=== PATIENT | female | born 1980 | race Caucasian/White ===

== ENCOUNTER 2016-11-13 21:09 | Inpatient (IN) | payer OTHER ==
--- NOTE | ~2016-11-13 | DS ---
Unit #: [id number] #: [id number] Patient: DUKE REDDY [id number] [place] [address] [id number] I MR#: [id number] NAME: DUKE REDDY ROOM: [facility] Age: 36 Sex: F Admission Date: 11/14/2016 : 1980 Discharge Date: 11/21/2016 Attending Physician: Christopher Ortiz M.D. Primary Care Physician: Primary Care Physician No DISCHARGE SUMMARY REASON FOR ADMISSION Detox. DIAGNOSTIC STUDIES Laboratory data is remarkable for creatinine 0.5. HOSPITAL COURSE The patient was admitted to inpatient unit on November 14 and discharged on November 21, 2016. The patient was treated on the inpatient unit with group therapy, individual therapy, detox protocol, and detox monitoring, chemical dependency group, and the patient was responsive to treatment. The patient's brother has currently petitioned court for further treatment in rehab facility. The patient showed improvement, denied any thoughts of harming self or others. The patient was subsequently discharged with her brother. The patient will go to court and after that to a rehab program. DISCHARGE DIAGNOSES [place] I Opiate use disorder, severe, F11.20. Major depressive disorder, recurrent, severe, F33.2. [place] II Deferred. [place] III None. [place] IV Psychosocial stressor. [place] V INSTRUCTIONS TO PATIENT The patient is to follow up in outpatient clinic as well as director social service. DISCHARGE MEDICATIONS 1. Desyrel 50 mg at bedtime 2. Vistaril 25 mg three times a day for anxiety 3. Neurontin 300 mg three times a day for anxiety 4. Celexa 40 mg daily for mood symptoms CONDITION AT DISCHARGE The patient is pleasant and cooperative, and without any psychotic symptoms or any suicidal ideation. PROGNOSIS Guarded. DIET AND ACTIVITY As tolerated. Unit #: [id number] #: [id number] Patient: DUKE REDDY Dictated by... Montserrat Gruber/juan carlos TD: 11/22/2016 10:00 JOB #: [id number] DISCHARGE SUMMARY Page 1 of 1 X Christopher Ortiz MD X DISCHARGE SUMMARY
--- NOTE | ~2016-11-13 | PN ---
Unit #: [id number] #: [id number] Patient: DUKE REDDY [id number] [facility] [address] [place] [address] [id number] I MR#: [id number] NAME: DUKE REDDY ROOM: [facility] Age: 36 Sex: F Admission Date: 11/14/2016 : 1980 Attending Physician: Christopher Ortiz M.D. Admitting Physician: Christopher Ortiz M.D. Primary Care Physician: Primary Care Physician Princess LANDRY NOTES DATE OF SERVICE 11/17/2016 DISCUSSION Ms. Duke Reddy is a 36-year-old female. The patient interviewed, chart reviewed. Obtained information from nursing staff. The patient compliant, cooperative. Mood sad, dysphoric, flat affect, guarded. The patient denied any thoughts of harming self or others, but still having withdrawal symptom. Anxious, nervous. Sad, depressed mood. Complete Review of Systems: Unremarkable. MENTAL STATUS EXAMINATION General Appearance: The patient dressed casually. Attention span, concentration: Fair. Oriented in place and person. Mood and affect labile. Speech: Monotone. Thought process: [place]. The patient reported having passive SI. Denied any homicidal ideation. Guarded, paranoid, isolative. Recent and remote memory: Poor. Insight and judgment: Poor. DIAGNOSES 1. Opiate use disorder, severe. 2. Mood disorder, not otherwise specified. ASSESSMENT/PLAN Advised to continue with current medication and therapeutic protocol. If needed, consider further adjustment of medication. Dictated by... Montserrat Gruber/nehemias TD: 11/18/2016 08:52 JOB #: [id number] Unit #: [id number] #: [id number] Patient: DUKE REDDY CHRISTOPHER PROGRESS NOTES Page 1 of 1 X Christopher Ortiz MD PROGRESS NOTE
--- NOTE | ~2016-11-13 | PN ---
Unit #: [id number] #: [id number] Patient: DUKE REDDY [id number] [facility] [address] [place] [address] [id number] I MR#: [id number] NAME: DUKE REDDY ROOM: [facility] Age: 36 Sex: F Admission Date: 11/14/2016 : 1980 Attending Physician: Christopher Ortiz M.D. Admitting Physician: Christopher Ortiz M.D. Primary Care Physician: Primary Care Physician Princess WHITE PROGRESS NOTES DATE OF SERVICE 11/20/2016 DISCUSSION Ms. Cabrera is a 36-year-old female seen on 11/20/2016. The patient interviewed, chart reviewed. Obtained information from nursing staff. The patient was compliant, cooperative. Able to maintain safe behavior. Reporting mood is better, making progress. Complete Review of Systems: Unremarkable. MENTAL STATUS EXAMINATION General Appearance: The patient dressed casually. Attention span, concentration: Fair. Oriented in place and person. Mood and affect labile. Speech: Monotone. Thought process: [place]. The patient denied any thoughts of harming self or others. Recent and remote memory: Poor. Insight and judgment: Poor. DIAGNOSES 1. Opiate use disorder, severe. 2. Mood disorder not otherwise specified. ASSESSMENT/PLAN Advised to continue with current medication and therapeutic protocol. If needed, consider further adjustment of medication. Dictated by... Montserrat Gruber/nehemias TD: 11/21/2016 09:41 JOB #: [id number] Unit #: [id number] #: [id number] Patient: DUKE REDDY PROGRESS NOTES Page 1 of 1 X Christopher Ortiz MD PROGRESS NOTE
--- NOTE | ~2016-11-13 | PN ---
Unit #: [id number] #: [id number] Patient: DUKE REDDY [id number] [facility] [address] [place] [address] [id number] I MR#: [id number] NAME: DUKE REDDY ROOM: [facility] Age: 36 Sex: F Admission Date: 11/14/2016 : 1980 Attending Physician: Christopher Ortiz M.D. Admitting Physician: Christopher Ortiz M.D. Primary Care Physician: Primary Care Physician Princess WHITE PROGRESS NOTES DATE OF SERVICE 11/19/16 DISCUSSION Ms. Cabrera is a 36-year-old female seen on 11/19/16. Patient interviewed, chart reviewed, I obtained information from nursing staff. Patient on interview reports sad, depressed, withdrawn, isolative, guarded but reports her anxiety is better. Patient tolerating medication fairly well, attending some group but still is sad, depressed, withdrawn, isolative. Patient is currently on Celexa 40 mg daily, which was increased yesterday due to further depressive symptoms; Neurontin 300 mg three times a day; Desyrel 50 mg at bedtime; Vistaril 25 mg three times a day. COMPLETE REVIEW OF SYSTEMS Unremarkable. MENTAL STATUS EXAMINATION GENERAL APPEARANCE: Patient dressed casually. ATTENTION SPAN AND CONCENTRATION: Fair. Oriented in time, place and person. MOOD AND AFFECT: Sad, dysphoric, flat affect, anxious, nervous. SPEECH: Low in volume. THOUGHT PROCESS: Goal directed. Patient denied any thoughts of harming self or others, but sad, depressed, withdrawn, isolative, guarded. RECENT AND REMOTE MEMORY: Poor. INSIGHT AND JUDGMENT: Poor. DIAGNOSES Opiate use disorder, severe Major depressive disorder, recurrent, severe ASSESSMENT/PLAN Advised to continue with current medication and therapeutic protocol. If needed, consider further adjustment in medication. Dictated by... Montserrat Gruber/andrés Unit #: [id number] #: [id number] Patient: DUKE REDDY TD: 11/19/2016 22:41 JOB #: [id number] [facility] PROGRESS NOTES Page 1 of 1 X Christopher Ortiz MD PROGRESS NOTE
--- NOTE | ~2016-11-13 | PN ---
Unit #: [id number] #: [id number] Patient: DUKE REDDY [id number] [facility] [address] [place] [address] [id number] I MR#: [id number] NAME: DUKE REDDY ROOM: [facility] Age: 36 Sex: F Admission Date: 11/14/2016 : 1980 Attending Physician: Christopher Ortiz M.D. Admitting Physician: Christopher Ortiz M.D. Primary Care Physician: Primary Care Physician Princess WHITE PROGRESS NOTES DATE 11/18/2016 DISCUSSION Ms. Duke Reddy is a 36-year-old female seen on 11/18/2016. Patient appears to be sad, dysphoric, withdrawn, isolative, guarded. Patient reports still having problem with the anxiety but report making progress, sleeping good, tolerating medication fairly well. Currently on detox protocol. Patient was seclusive, isolative. Complete review of system unremarkable. MENTAL STATUS EXAMINATION Patient's vital signs 98.4, 98, 85/53. Attention span, concentration fair. Oriented in place and person. Mood and affect sad, dysphoric. Speech monotone. Thought process concrete. Patient denied any thoughts of harming self or others but sad, depressed, withdrawn. Recent and remote memory poor. Insight and judgement poor. DIAGNOSES 1. Opiate use disorder, severe. 2. Mood disorder NOS. ASSESSMENT/PLAN Advised to continue with current medications and therapeutic protocol. If needed, consider further adjustment of medication. Dictated by... Montserrat Gruber/jagruti TD: 11/18/2016 21:41 JOB #: [id number] Unit #: [id number] #: [id number] Patient: DUKE REDDY PROGRESS NOTES Page 1 of 1 X Christopher Ortiz MD PROGRESS NOTE
--- NOTE | ~2016-11-13 | PA ---
Unit #: [id number] #: [id number] Patient: DUKE REDDY [id number] [facility] [address] [place] [address] [id number] I MR#: [id number] NAME: DUKE REDDY ROOM: [facility] Age: 36 Sex: F Admission Date: 11/14/2016 : 1980 Date of Assessment: 11/14/2016 Attending Physician: Christopher Ortiz M.D. Admitting Physician: Christopher Ortiz M.D. Primary Care Physician: Primary Care Physician No PSYCHIATRIC ASSESSMENT INFORMANTS Patient's reliability, fair; chart reliability, good. CHIEF COMPLAINT Detox and depression. HISTORY OF PRESENT ILLNESS Ms. Cabrera is a 36-year-old female, presented with the above-mentioned complaint. The patient reported that she has suicidal ideation, stating if she had a gun she would blow her brains out. The patient is in [facility] since last 11/08/2016, to detox from heroin and Suboxone. The patient is using heroin and Suboxone since 03/2016. The patient is still having detox symptoms of vomiting, diarrhea, sweating, restlessness of her legs, irritability, sleeping, depression, hopelessness, worthlessness, not eating, loss of weight almost 20 pounds in the month. The patient's score is 14 on CIWA scale and reported that [facility] today and called brother. The patient's brother reported that he is very concerned for her safety. The patient's asked her to leave home. The patient reports that she quit her job. 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 The patient reports that she has addiction to opioids and quit using in 01/2014 and then started using alcohol again in 02/2015 socially. The patient then had hysterectomy in 03/2016 and was prescribed opioids and then started using heroin and Suboxone snorting. The patient is using daily and interfering with her daily life. The patient reported feeling of hopelessness and worthlessness. The patient reports around 1999 to 2014 using 12 to 25 Percocet, roxys and oxycodone. The patient reported detoxed, but relapsed again. The patient's is keeping their 4 children. The patient reports she would like to get better and get some help. The patient has a history of tobacco use, age of onset 13; alcohol, age of onset 16; marijuana, age of onset 13; LSD, age of onset 13; opioid, age of onset 16. The patient has a longest period of sobriety of 2 years and last period of sobriety in 03/2016. The patient reported history of blackout. No history of IV drug use. History of withdrawal symptoms. The patient denied any HIV or hepatitis. Reported currently having headache, diarrhea, diaphoresis, irritability, depressed mood, difficulty concentration, poor appetite, sweating, and needing inpatient admission at this time for psychiatric stabilization. PAST PSYCHIATRIC HISTORY Remarkable for history of previous treatment as mentioned above at [facility] inpatient or outpatient and AA. Unit #: [id number] #: [id number] Patient: DUKE REDDY FAMILY HISTORY AND SOCIAL HISTORY The patient has a poor support system at this time. The patient was asked to leave from her 's house who is keeping 4 children. History of grandfather being alcoholic, parents with depression, uncle with alcoholism. The patient reported history of legal problems, citation for possession of controlled substance got 5 year probation. The patient reports for 12 years, kicked out today due to using drugs. The patient denied any history of abuse. MEDICAL HISTORY Unremarkable for any chronic medical condition. Musculoskeletal; muscle strength and tone, no atrophy or abnormal movement. Gait normal. MEDICATION HISTORY None. ALLERGIES No known drug allergies. SUBSTANCE ABUSE HISTORY Please see above. REVIEW OF SYSTEMS HEENT: Eyes, clear. Ears, nose, mouth, and throat; clear. CARDIOVASCULAR: Unremarkable. RESPIRATORY: Unremarkable. GI: Unremarkable. : Unremarkable. SKIN: Unremarkable. LYMPH NODE: Unremarkable. NEUROLOGIC: Unremarkable. ENDOCRINE: Unremarkable. HEMATOLOGIC: Unremarkable. ALLERGIC/IMMUNOLOGIC: Unremarkable. MUSCULOSKELETAL: Muscle strength and tone, no atrophy or abnormal movement. Gait normal. MENTAL STATUS EXAMINATION CONSTITUTIONAL: Measurement of vital signs; temperature is 98.4, pulse 78, respirations 16, blood pressure 88/52, height 5 feet, weight 114 pounds. GENERAL APPEARANCE: The patient dressed casually. The patient did not show any facial deformity. MUSCULOSKELETAL: Please see above. PSYCHIATRIC EXAMINATION Description of speech; regular rate, normal volume, normal articulation. Description of thought process, goal directed. Description of association, intact. Description of abnormal psychotic thinking; the patient denied any hallucinations or delusions, but mood lability, sad, depression, substance abuse. Description of the patient's judgment, concerning. Everyday activity, poor. Social situation, poor and concerning. Psychiatric condition, poor. The patient also had suicidal ideation as mentioned above. Complete mental status examination; oriented in time, place, and person. Recent and remote memory, fair. Attention span and concentration, fair. Language, able to name object and repeat phrases. [facility], Unit #: [id number] #: [id number] Patient: DUKE REDDY aware of current event and passive. Vocabulary intact. Mood and affect, sad and dysphoric. Insight and judgment, fair to poor. ASSETS AND LIABILITIES Assets; the patient is articulate and able to take care of her ADL. Liability; history of depression, suicidal ideation, substance abuse. ADMITTING DIAGNOSES Psychiatric: 1. Opioid use disorder, severe, F11.20. 2. Major depressive disorder, recurrent, severe, F33.2. Secondary diagnosis: Deferred. Medical diagnosis: None. Stressors: Psychosocial stressors. PSYCHIATRIC PLAN AND TREATMENT GOAL AND DISCHARGE PLAN 1. Advised to admit the patient on the inpatient unit. Provide safe, supportive, and structured environment. 2. Ordered labs; CBC, CMP, UA, and UDS. 3. Precaution for self-harm, detox protocol, and detox monitoring. Plan to start the patient on Celexa for depression, Vistaril for anxiety, Desyrel for sleep. The patient is to attend all the programing in group therapy, individual therapy, medication management, chemical dependency group. 4. Treatment goal is to attain euthymic mood, gain insight into her problem, and learn coping skills. 5. Discharge plan is to stabilize the patient and consider followup in outpatient program. ESTIMATED LENGTH OF STAY 5 to 7 days. Dictated by... Christopher Ortiz M.D. DANITZA/niyah TD: 11/15/2016 05:06 JOB #: [id number] PSYCHIATRIC ASSESSMENT Page 1 of 1 X Christopher Ortiz MD X PSYCHIATRIC ASSESSMENT
--- NOTE | ~2016-11-13 | HP ---
Unit #: [id number] #: [id number] Patient: DUKE REDDY [id number] [place] [address] [id number] I MR#: [id number] NAME: DUKE REDDY ROOM: 76 Age: 36 Sex: F Admission Date: 11/14/2016 : 1980 Attending Physician: Christopher Ortiz M.D. Admitting Physician: Christopher Ortiz M.D. Primary Care Physician: Primary Care Physician No HISTORY AND PHYSICAL HISTORY OF PRESENT ILLNESS Duke is a 36 year old, admitted to [facility] [place] [facility] because of her drug use. She is detoxing off of Suboxone. PAST MEDICAL HISTORY 1. History of illicit substance abuse to include Suboxone. 2. History of transient ischemic attack. PAST SURGICAL HISTORY 1. Cholecystectomy. 2. Hysterectomy. 3. Tubal ligation. 4. Appendectomy. 5. Hemorrhoidectomy. ALLERGIES Penicillin (anaphylaxis). SOCIAL HISTORY Smokes greater than one pack per day. Denies alcohol and admits to a history of opioid abuse to include Suboxone and snorting heroin. FAMILY HISTORY Medically noncontributory. REVIEW OF SYSTEMS CONSTITUTIONAL: No fever or chills. HEENT: Denies any sore throat, ear pain or runny nose. CARDIOVASCULAR: Denies chest pain, irregular heart rhythm or palpitations. CHEST: Denies shortness of breath or cough. No hemoptysis. GASTROINTESTINAL: Denies nausea, vomiting, diarrhea or chronic constipation. ENDOCRINE: Denies history of increased thirst or urination. No recent significant weight loss or gain. GENITOURINARY: Denies dysuria, frequency, or hematuria. SKIN: Denies any rashes. HEMATOLOGIC: Denies history of increased bleeding or bruising. MUSCULOSKELETAL: Denies any hot, swollen joints. No generalized muscle pain. NEUROLOGIC: Denies problems with vision or speech. No frequent, severe headaches. No numbness, tingling or weakness in any extremities. Denies loss of bladder or bowel control. Unit #: [id number] #: [id number] Patient: DUKE REDDY CURRENT MEDICATIONS 1. Detox protocol 2. Celexa 20 mg daily 3. Desyrel 50 mg q.h.s. PHYSICAL EXAMINATION GENERAL: Alert, well-nourished, no apparent distress. VITAL SIGNS: Blood pressure 100/62, heart rate 80, respirations 16, and temperature 98.6. WEIGHT: 115 pounds. HEIGHT: 5 feet 0 inches. SKIN: Warm and dry without rash or lesion. HEENT: Normocephalic. TMs not viewed. Oral and nasal passages clear. Conjunctivae clear. PERRLA. EOMs intact. NECK: Supple without lymphadenopathy or thyromegaly. HEART: Regular rate and rhythm without murmur. LUNGS: Clear. ABDOMEN: Soft, nontender. : Not done. EXTREMITIES: No evidence of cyanosis, clubbing or edema. Moves all without focal deficit. NEUROLOGICAL: Grossly within normal limits. Cranial Nerves: II: Visual alfonso are intact. III, IV AND : Extraocular movements are intact. Pupils are equal, round and reactive to light. V: Facial sensation is grossly normal. VII: Facial movements and expression are normal. VIII: Auditory acuity grossly intact. IX, X: Uvula is midline. Phonation is normal. XI: Patient shrugs shoulders and turns head normally. XII: Tongue protrudes in the midline. Sensory and Motor Function: Sensory and motor sensation is grossly normal. Motor: moves all extremities well. Coordination: Gait is normal. Deep Tendon Reflexes: Intact. IMPRESSION Psychiatric admission. RECOMMENDATIONS Psychiatric, per psychiatrist. MEDICAL I see no contraindications to participating in facility's activities. MEDICAL PROGNOSIS Good. MEDICAL CONDITION Stable. Dictated by... Belinda Diggs P.A.-C. for Montserrat Wolf/juan carlos TD: 11/15/2016 07:46 JOB #: [id number] Unit #: [id number] #: [id number] Patient: DUKE REDDY HISTORY AND PHYSICAL Page 1 of 1 X Belinda Diggs HISTORY AND PHYSICAL
--- NOTE | ~2016-11-13 | PN ---
Unit #: [id number] #: [id number] Patient: DUKE PARISI [id number] [facility] [address] [place] [address] [id number] MR#: [id number] NAME: DUKE PARISI ROOM: [facility] Age: Sex: F Admission Date: 11/14/2016 : 1980 Attending Physician: Christopher Ortiz M.D. Admitting Physician: Christopher Ortiz M.D. Primary Care Physician: Primary Care Physician No [facility] PROGRESS NOTES REVISED REPORT (See Addendum) DATE 11/16/2016 DISCUSSION Ms. Parisi is a 36-year-old female, seen on 11/16/2016. The patient interviewed, chart reviewed, and obtained information from the nursing staff. The patient was compliant and cooperative. Mood sad and dysphoric. The patient continues to report having withdrawal symptoms, severe anxiety. The patient still isolative, guarded, flat affect, anxious, nervous. Vital signs, 97.7, . . . . . . . REVIEW OF SYSTEMS Complete review of systems unremarkable. MENTAL STATUS EXAMINATION General appearance: Patient dressed casually. Attention span and concentration, fair. Oriented in place and person. DIAGNOSES 1. Opioid-induced disorder, severe. 2. Major depressive disorder, recurrent. ASSESSMENT AND PLAN Advised to continue with current medications and therapeutic protocol. If needed, consider further adjustment of medication. Dictated by... Montserrat Gruber/juan carlos TD: 11/17/2016 10:00 JOB #: [id number] ADDENDUM Revisions and deletions made per instructions on . Unit #: [id number] #: [id number] Patient: DUKE PARISI Dictated by... Montserrat Gruber TD: 11/17/2016 09:59 JOB #: [id number] [facility] PROGRESS NOTES Page 1 of 1 X Christopher Ortiz MD PROGRESS NOTE
--- NOTE | ~2016-11-13 | PN ---
Unit #: [id number] #: [id number] Patient: DUKE REDDY [id number] [facility] [address] [place] [address] [id number] MR#: [id number] NAME: DUKE REDDY ROOM: [facility] Age: 36 Sex: F Admission Date: 11/14/2016 : 1980 Attending Physician: Christopher Ortiz M.D. Admitting Physician: Christopher Ortiz M.D. Primary Care Physician: Primary Care Physician Princess LANDRY NOTES DATE 11/15/2016 DISCUSSION Ms. Cabrera is a 36-year-old female seen on 11/15/2016. Patient interviewed. Chart reviewed. Obtained information from nursing staff. Patient continues to be sad, depressed, withdrawn, isolative, flat affect. Patient reported having severe anxiety. Therefore, received p.r.n. Ativan. Patient's vital signs stable, 98.4, 83, 16, 91/67. Patient's brother called and reported that he will be getting MIW for her so that she does not leave and help that she needed. Patient still reporting sad, depressed, anxious, and hopeless, withdrawal symptoms from opiates. Complete review of system unremarkable. MENTAL STATUS EXAMINATION General appearance, patient dressed casually. Attention span, concentration fair. Oriented in place and person. Mood and affect sad, depressed. Speech monotone. Thought process concrete. Patient reported passive SI. Denied any homicidal ideation, guarded, paranoid, isolative. Recent and remote memory poor. Insight and judgement poor. DIAGNOSES 1. Mood disorder NOS. 2. Opiate use disorder, severe. ASSESSMENT/PLAN Advised to continue with current medication and therapeutic protocol. If needed, consider further adjustment of medication. Dictated by... Montserrat Gruber/jagruti TD: 11/16/2016 16:26 JOB #: [id number] Unit #: [id number] #: [id number] Patient: DUKE REDDY [facility] PROGRESS NOTES Page 1 of 1 X Christopher Ortiz MD X PROGRESS NOTE
[2016-11-15 09:29] LABS: BASOPHIL# 0.1 X10e3 (0-0.3); BASOPHIL% 0.7 % (0-2.5); EOSINOPHIL# 0.2 X10e3 (0-0.7); EOSINOPHIL% 2.5 % (0.0-7.0); HEMATOCRIT 44.5 % (35.0-45.0); HEMOGLOBIN 14.8 gm/dL (12.0-16.0); LYMPHOCYTE# 3.9 X10e3 (1.0-3.5); LYMPHOCYTE% 42.1 % (17.0-45.0); MEAN CELL VOLUME 95.3 FL (83-96); MEAN CORPUSCULAR HEMOGLOBIN 31.7 PG (28-34); MEAN CORPUSCULAR HGB CONC 33.2 g/dL (30-36); MEAN PLATELET VOLUME 7.9 FL (6.5-11.5); MONOCYTE# 0.7 X10e3 (0-1.0); MONOCYTE% 7.9 % (3.0-12.0); NEUTROPHIL# 4.3 X10e3 (1.5-7.1); NEUTROPHIL% 46.8 % (40-75); PLATELET COUNT 295 X10e3 (140-420); RED BLOOD COUNT 4.67 X10e (3.90-5.30); RED CELL DISTRIBUTION WIDTH 12.9 % (11.0-15.5); WHITE BLOOD COUNT 9.2 X10e3 (4.0-10.5)
[2016-11-15 09:31] LABS: DIFF IND NO
[2016-11-15 09:51] LABS: ALBUMIN SERUM 3.7 g/dL (3.5-5.0); BILIRUBIN,TOTAL 0.4 mg/dL (0.2-2.0); CALCIUM SERUM 8.9 mg/dL (8.4-10.2); CREATININE SERUM 0.5 mg/dL (0.6-1.4); GLOM FILT RATE Estimated 124.5 mL/min (>60); POTASSIUM 3.6 mmol/L (3.5-5.1); PROTEIN TOTAL SERUM 6.1 g/dL (6.0-8.3)
== END 2016-11-21 10:15 | disposition home or self-care (01) | DRG 897 ==
LOC: P1E 11-14 00:06
PROVIDERS: Psychiatry & Neurology Psychiatry
PROC: HZ2ZZZZ Detoxification Services for Substance Abuse Treatment (ICD-10-PCS; principal; 2016-11-14)
DX: F11.20 Opioid dependence, uncomplicated (principal); F33.2 Major depressive disorder, recurrent severe without psychotic features; Z86.73 Personal history of transient ischemic attack (TIA), and cerebral infarction without residual deficits; F17.210 Nicotine dependence, cigarettes, uncomplicated; Z88.0 Allergy status to penicillin; F39 Unspecified mood [affective] disorder
CPT/HCPCS: 80053; 85025; 86592